=== PATIENT | male | born 1945 | race Caucasian/White ===

== ENCOUNTER 2018-09-23 10:41 | Emergency (ER) | payer MEDICARE ==
[2018-09-23 10:49] VITALS: BP 130/56
[2018-09-23] MEDS ORDERED: cephALEXin 250 MG CAPSULE PO STA (12:52)
--- NOTE | 2018-09-23 13:42 | ED Physician Documentation ---
PD HPI LOWER EXT INJURY - Stated complaint Stated Complaint: BUG BITE CONCERN - Chief complaint Chief Complaint: General - History obtained from History obtained from: Patient - History of Present Illness PD HPI LOW EXT INJURY LOCATION: Left, Ankle Type of injury: Other (bite) Where injury occurred: Home Timing - onset: How many days ago (3) Associated symptoms: Swelling, Discolored Similar symptoms before: Has not had sx before - Additional information Additional information: The patient is a 73-year-old male who noticed redness and swelling of his left ankle 3 days ago. He thinks it was due to a spider bite but is not certain. He denies any traumatic injury. He presents now because of continued redness and swelling, although it is slightly better than it was 2 days ago. He denies fever or difficulty breathing. He denies history of similar symptoms in the past. Review of Systems Constitutional: denies: Fever Nose: denies: Congestion Throat: denies: Sore throat Cardiac: denies: Chest pain / pressure Respiratory: denies: Dyspnea, Cough GI: denies: Abdominal Pain, Nausea, Vomiting Skin: reports: Bite / sting (left ankle) Musculoskeletal: reports: Extremity swelling (left ankle) Neurologic: denies: Focal weakness, Numbness, Headache PD PAST MEDICAL HISTORY - Past Medical History Past Medical History: No - Past Surgical History Past Surgical History: No - Present Medications Home Medications: Ambulatory Orders Medication Instructions Recorded Confirmed cephALEXin [Cephalexin] 500 mg PO TID #15 tablet 09/23/18 - Allergies Allergies/Adverse Reactions: Allergies Allergy/AdvReac Type Severity Reaction Status Date / Time morphine AdvReac Unknown Verified 09/23/18 10:49 - Social History Does the pt smoke?: No Smoking Status: Never smoker PD ED PE NORMAL - Vitals Vital signs reviewed: Yes (normal) - General General: Alert and oriented X 3, Well developed/nourished - HEENT HEENT: Atraumatic, Pharynx benign - Cardiac Cardiac: RRR - Respiratory Respiratory: No respiratory distress, Clear bilaterally - Derm Derm: No rash - Extremities Extremities: Other (There is erythema of the lateral aspect of the left ankle, with associated warmth to palpation. There is mild soft tissue edema. There is a three-quarter centimeter area of necrotic tissue in the central region. No evidence of abscess, and no lymphangitic streaking. Distal neurovascular is intact.) - Neuro Neuro: Alert and oriented X 3, No motor deficit, No sensory deficit Results - Vitals Vitals: Vital Signs - 24 hr 09/23/18 10:47 Temperature 35.9 C L Heart Rate 85 Respiratory 19 Rate Blood Pressure 130/56 L O2 Saturation 97 Oxygen O2 Source Room air PD MEDICAL DECISION MAKING - ED course Complexity details: considered differential, d/w patient, d/w family ED course: The patient's presentation is most consistent with spider bite with subsequent cellulitis. There is no evidence of abscess. Treatment in the emergency department included administration of cephalexin 500 mg orally. He is being discharged with prescription for cephalexin. I discussed with him the expected course of illness, antibiotic treatment and outpatient follow-up, as well as potentially worrisome signs or symptoms that should prompt reevaluation in the emergency department. Departure - Departure Disposition: 01 Home, Self Care Clinical Impression: Cellulitis Qualifiers: Site of cellulitis: extremity Site of cellulitis of extremity: lower extremity Laterality: left Qualified Code(s): L03.116 - Cellulitis of left lower limb Spider bite wound Qualifiers: Encounter type: initial encounter Injury intent: accidental or unintentional Qualified Code(s): T63.301A - Toxic effect of unspecified spider venom, accidental (unintentional), initial encounter Condition: Stable Instructions: ED Infec Skin Cellulitis Prescriptions: cephALEXin [Cephalexin] 500 mg PO TID #15 tablet Comments: Keep your left leg elevated as much the time as possible. Take cephalexin 3 times daily as prescribed. You can use ibuprofen, up to 800 mg 3 times daily for anti-inflammatory effect. Follow-up with primary physician, or return to the emergency department if you develop increasing redness, swelling, pain, or otherwise worsening symptoms.
== END 2018-09-23 14:11 | disposition home or self-care (01) ==
LOC: ED 10:41
DX: L03.116 Cellulitis of left lower limb (principal); T63.301A Toxic effect of unspecified spider venom, accidental (unintentional), initial encounter; Y92.009 Unspecified place in unspecified non-institutional (private) residence as the place of occurrence of the external cause
CPT/HCPCS: 99282; 99283; A9270